=== PATIENT | male | born 1995 | race Hispanic/Latino ===

== ENCOUNTER 2018-07-05 18:37 | Emergency (ER) | payer BC ==
[2018-07-05 19:02] VITALS: RESP 18; TEMP 97.9
--- NOTE | 2018-07-05 19:11 | ED PDOC ---
Arrival/HPI - General Historian: Patient - History of Present Illness Narrative History of Present Illness (Text): 07/05/18 19:07 23 y/o male, no significant pmh, nkda, c/o lt. lower rib pain and bruisin on the left flank x 5 days. Pt. stated that he was down at the [facility], came out of the shower, slipped and landed on the left flank region with pain, noted bruising 1-2 days later which causing the lt. lower sided abdomen bruising, no hematuria, no shortness of breath/palpitation, no night sweat, last tetanus over 10 years ago, no nausea/vomiting/diarrhea, no other medical or psychological complaints. <Marty Mancia - Last Filed: 07/05/18 22:19> <Tonio Scanlon - Last Filed: 07/06/18 02:31> - General Chief Complaint: Rib Injury Time Seen by Provider: 07/05/18 18:50 Past Medical History - Provider Review Nursing Documentation Reviewed: Yes - Cardiac Hx Pacemaker: No - Neurological Hx Paralysis: No - Hematological/Oncological Hx Blood Transfusions: No Hx Blood Transfusion Reaction: No - Musculoskeletal/Rheumatological Hx Musculoskeletal Disorders: No - Psychiatric Hx Emotional Abuse: No Hx Physical Abuse: No Hx Substance Use: No - Anesthesia Hx Anesthesia: Yes Hx Anesthesia Reactions: No Hx Malignant Hyperthermia: No - Suicidal Assessment Feels Threatened In Home Enviroment: No <Marty Mancia - Last Filed: 07/05/18 22:19> Family/Social History - Physician Review Nursing Documentation Reviewed: Yes Family/Social History: Unknown Family HX Smoking Status: Never Smoked Hx Alcohol Use: No Hx Substance Use: No <Marty Mancia - Last Filed: 07/05/18 22:19> Allergies/Home Meds <Marty Mancia - Last Filed: 07/05/18 22:19> <Tonio Scanlon - Last Filed: 07/06/18 02:31> Allergies/Adverse Reactions: Allergies No Known Allergies Allergy (Verified 10/03/12 09:45) Home Medications: Home Meds Medication Instructions Recorded Confirmed Dextroamphetamine/Amphetamine 1 cap PO DAILY 07/05/18 07/05/18 [Adderall Xr 30 mg Capsule] Review of Systems - Review of Systems Constitutional: absent: Fatigue, Fevers Eyes: absent: Vision Changes ENT: absent: Hearing Changes Respiratory: absent: SOB, Cough, Sputum, Wheezing Cardiovascular: absent: Chest Pain Gastrointestinal: absent: Abdominal Pain, Vomiting Musculoskeletal: Arthralgias, Myalgias Skin: Other (+bruising and abrasion). absent: Rash, Pruritis, Skin Lesions, Laceration, Abscess, Ulcer, Cellulitis Neurological: absent: Headache, Dizziness Psychiatric: absent: Anxiety, Depression, Suicidal Ideation <Marty Mancia Q - Last Filed: 07/05/18 22:19> Physical Exam Vital Signs Reviewed: Yes Vital Signs Temp Pulse Resp BP Pulse Ox 07/05/18 18:38 97.9 F 79 18 144/91 H 97 Temperature: Afebrile Blood Pressure: Hypertensive Pulse: Regular Respiratory Rate: Normal Appearance: Positive for: Well-Appearing, Non-Toxic, Comfortable Pain Distress: Moderate Mental Status: Positive for: Alert and Oriented X 3 - Systems Exam Head: Present: Atraumatic, Normocephalic Pupils: Present: PERRL Extroacular Muscles: Present: EOMI Conjunctiva: Present: Normal Mouth: Present: Moist Mucous Membranes Neck: Present: Normal Range of Motion Respiratory/Chest: Present: Clear to Auscultation, Good Air Exchange, Tender to Palpation (+lt. lower rib cage region). No: Respiratory Distress, Accessory Mus jasbir Use, Wheezes, Decreased Breath Sounds, Rales, Retracting, Rhonchi, Tachypneic Cardiovascular: Present: Regular Rate and Rhythm, Normal S1, S2. No: Murmurs Abdomen: Present: Tenderness (+ttp on the LUQ/flank region with bruising approx. [id number] bruising L-shaped with superficial healing abrasion noted. ). No: Distention, Peritoneal Signs, Rebound, Guarding Back: Present: Normal Inspection. No: Midline Tenderness, Paraspinal Tenderness, Pain with Leg Raise, Decubitus Ulcer Upper Extremity: Present: Normal Inspection. No: Cyanosis, Edema Lower Extremity: Present: Normal Inspection. No: Edema Neurological: Present: GCS=15, CN II-XII Intact, Speech Normal Skin: Present: Warm, Dry, Normal Color. No: Rashes Psychiatric: Present: Alert, Oriented x 3, Normal Insight, Normal Concentration <Marty Mancia Q - Last Filed: 07/05/18 22:19> Vital Signs Temp Pulse Resp BP Pulse Ox 07/05/18 22:50 74 18 132/74 100 07/05/18 18:38 97.9 F 79 18 144/91 H 97 <Tonio Scanlon - Last Filed: 07/06/18 02:31> Medical Decision Making ED Course and Treatment: 07/05/18 19:18 -Labs -CT -IVF/morphine -observe and reassess 07/05/18 22:20 -CT Chest/abdomen/pelvis: No acute traumatic injury appreciated. The thoracic ribs appear unremarkable. No acute intrapulmonary disease. Enteritis. No evidence of bowel obstruction. -Labs are non-significant -Pt. feels well, no pain, no GI symptoms, CT enteritis result is not correlated clinically with no elevation of wbc, likely overread. -All labs and radiology result discussed with the patient. -Discharge home with naproxen, flexeril, bed rest, follow up with your own pmd and orthopedic within 2 days, return to the ER for any new or worsening signs or symptoms. - RAD Interpretation Radiology Orders: -CT Chest/abdomen and pelvis Findings: Chest: The pulmonary arteries are well-opacified with contrast, with no intraluminal filling defects to suggest embolism. The thoracic aorta is unremarkable. There is no pericardial or pleural effusion. The lungs are clear. There is no thoracic lymphadenopathy. The thyroid gland is within normal limits. Abdomen: The liver, spleen, pancreas, kidneys, gallbladder, and adrenal glands are unremarkable. The aorta is within normal limits. There is no evidence of abdominal lymphadenopathy or ascites. There is small bowel wall thickening with moderate fluid distention. Pelvis: The colon is unremarkable, with no obstructive or inflammatory changes. The appendix is normal. The urinary bladder is within normal limits. The other pelvic structures appear grossly intact. There is no evidence of pelvic lymphadenopathy or ascites. Bones: There are no suspicious osseous abnormalities seen. Impression: 1. No acute traumatic injury appreciated. The thoracic ribs appear unremarkable. 2. No acute intrapulmonary disease. 3. Enteritis. No evidence of bowel obstruction. Electronically signed on Jul 05, 2018 10:15:57 PM EST by: Luis Enrique Rivas M.D., MELISSA Certified By [facility] Fellowship Trained MRI and CT Specialist Appliance Technician: Radiologist <Marty Mancia - Last Filed: 07/05/18 22:19> - Lab Interpretations Lab Results: 07/05/18 19:50 07/05/18 19:50 Lab Results 07/05/18 19:50: PT 10.5, INR 0.92, APTT 30.1 07/05/18 19:50: WBC 7.2, RBC 5.62, Hgb 17.1, Hct 47.9, MCV 85.2, MCH 30.4, MCHC 35.7, RDW 12.9, Plt Count 260, MPV 10.6, Gran % 55.3, Lymph % (Auto) 32.9, Henry % (Auto) 6.7 H, Eos % (Auto) 4.8, Baso % (Auto) 0.3, Gran # 3.96, Lymph # (Auto) 2.4, Henry # (Auto) 0.5, Eos # (Auto) 0.3, Baso # (Auto) 0.02 07/05/18 19:50: Sodium 137, Potassium 4.0, Chloride 101, Carbon Dioxide 26, Anion Gap 15, BUN 13, Creatinine 1.0, Est GFR ( Amer) > 60, Est GFR (Non- Af Amer) > 60, Random Glucose 107, Calcium 9.4, Total Bilirubin 0.4, AST 41, ALT 35, Alkaline Phosphatase 62, Total Protein 7.9, Albumin 4.6, Globulin 3.2, Albumin/Globulin Ratio 1.4 - RAD Interpretation Radiology Orders: 07/05/18 19:11 CHEST,ABD,PEL W/IV CONT ONLY [CT] Stat - Medication Orders Current Medication Orders: Discontinued Medications Sodium Chloride (Sodium Chloride 0.9%) 1,000 mls @ 250 mls/hr IV .Q4H [facility] Last Admin: 07/05/18 20:08 Dose: 250 mls/hr eMAR Start Stop Document 07/05/18 20:08 KV (Rec: 07/05/18 20:08 KV [id number]) Intravenous Solution Start Date 07/05/18 Start Time 20:08 Morphine Sulfate (Morphine) 4 mg IVP STAT STA Stop: 07/05/18 19:16 Last Admin: 07/05/18 20:07 Dose: 4 mg MAR Pain Assessment Document 07/05/18 20:07 KV (Rec: 07/05/18 20:07 KV [id number]) Pain Reassessment Is this a pain reassessment? No Sleep Is patient sleeping during reassessment? No Presence of Pain Presence of Pain Yes Pain Scale Used Protocol: PSCALES Pain Scale Used Numeric Description Intensity of Pain at present 8 IVP Administration Document 07/05/18 20:07 KV (Rec: 07/05/18 20:07 KV [id number]) Charges for Administration # of IVP Administrations 1 Tetanus/Reduced Diphtheria/Acell Pertussis (Boostrix Vaccine Inj) 0.5 ml IM .ONCE ONE Stop: 07/05/18 19:14 Last Admin: 07/05/18 20:08 Dose: 0.5 ml Immunization Registry Document 07/05/18 20:08 KV (Rec: 07/05/18 20:08 KV [id number]) [facility]-Date provided 07/05/18 <Tonio Scanlon - Last Filed: 07/06/18 02:31> - PA / DISTRICT ADMINISTRATIVE ASSISTANT / Resident Statement RONEL has reviewed & agrees with the documentation as recorded. <Marty Mancia - Last Filed: 07/05/18 22:19> - PA / DISTRICT ADMINISTRATIVE ASSISTANT / Resident Statement RONEL has reviewed & agrees with the documentation as recorded. <Tonio Scanlon - Last Filed: 07/06/18 02:31> Disposition/Present on Arrival - Present on Arrival Any Indicators Present on Arrival: No History of DVT/PE: No History of Uncontrolled Diabetes: No Urinary Catheter: No History of Decub. Ulcer: No History Surgical Site Infection Following: None - Disposition Have Diagnosis and Disposition been Completed?: Yes Disposition Time: 22:22 Patient Plan: Discharge <Marty Mancia - Last Filed: 07/05/18 22:19> <Tonio Scanlon - Last Filed: 07/06/18 02:31> - Disposition Diagnosis: Contusion, Fall, Abrasion Disposition: HOME/ ROUTINE Condition: IMPROVED Additional Instructions: -Discharge home with naproxen, flexeril, bed rest, use neosporin as needed, follow up with your own pmd and orthopedic within 2 days, return to the ER for any new or worsening signs or symptoms. Prescriptions: Cyclobenzaprine [Cyclobenzaprine HCl] 10 mg PO TID PRN #21 tab PRN Reason: Other Naproxen 500 mg PO BID PRN #20 tablet PRN Reason: other Referrals: FAMILY PROVIDER,NO [Primary Care Provider] - Follow up with primary Yeyo Hill III, MD [Medical Doctor] - Follow up with primary Forms: [place] ([place]ian), WORK NOTE
[2018-07-05] MEDS ORDERED: TDAP Vaccine 0.5 mL Syr IM ONE (19:13)
[2018-07-05] MEDS ORDERED: Morphine 4 mg/ml ISec IVP STA (19:15)
[2018-07-05] MEDS ORDERED: Sodium Chloride 0.9% 1,000 ML IV SCH (19:30)
[2018-07-05 20:02] LABS: BASO # 0.02 K/mm3 (0.0-2.0); BASO % 0.3 % (0.0-3.0); EOS # 0.3 (0.0-0.7); EOS % 4.8 % (1.5-5.0); GRAN # 3.96 (1.4-6.5); GRAN % 55.3 % (50.0-68.0); HEMOGLOBIN 17.1 g/dL (14.0-18.0); LYMPH # 2.4 (1.2-3.4); LYMPH % 32.9 % (22.0-35.0); MEAN CELL VOLUME 85.2 fl (80.0-105.0); MEAN CORPUSCULAR HEMOGLOBIN 30.4 pg (25.0-35.0); MEAN CORPUSCULAR HGB CONC 35.7 g/dl (31.0-37.0); MEAN PLATELET VOLUME 10.6 fl (7.0-11.0); MONO # 0.5 (0.1-0.6); MONO % 6.7 % (1.0-6.0); RBC 5.62 10^6/uL (3.5-6.1); RED CELL DISTRIBUTION WIDTH 12.9 % (11.5-14.5); WHITE BLOOD COUNT 7.2 10^3/uL (4.5-11.0)
[2018-07-05 20:11] LABS: INR 0.92; PARTIAL THROMBOPLASTIN TIME 30.1 Seconds (25.1-36.5); PROTHROMBIN TIME 10.5 SECONDS (9.4-12.5)
[2018-07-05 20:13] LABS: ALB/GLOB RATIO 1.4 (1.1-1.8); ALBUMIN 4.6 g/dL (3.0-4.8); ALT/SGPT 35 U/L (7-56); AST/SGOT 41 U/L (17-59); BLOOD UREA NITROGEN 13 mg/dL (7-21); CALCIUM 9.4 mg/dL (8.4-10.5); GFR NON-AFRICAN AMERICAN > 60
[2018-07-05] MEDS ORDERED: Iohexol 350 MG/100 ML VIAL ONE (20:25)
[2018-07-05 23:26] VITALS: BP 132/74; PULSE 74; O2SAT 100
--- NOTE | 2018-07-06 11:47 | CT ---
Date of service: 07/05/2018 PROCEDURE: CT Chest, Abdomen and Pelvis with intravenous contrast HISTORY: lt. lower rib injury s/p fall 06/30/2018, bruising COMPARISON: None available. TECHNIQUE: IV dose administered: 100 cc of Omni 350 Radiation dose: Total exam DLP = 1192.22 mGy-cm. This CT exam was performed using one or more of the following dose reduction techniques: Automated exposure control, adjustment of the mA and/or kV according to patient size, and/or use of iterative reconstruction technique. FINDINGS: CT CHEST WITH CONTRAST: LUNGS: Clear. No nodule, mass or consolidation. MEDIASTINUM: Unremarkable. Normal caliber aorta and pulmonary arterial trunk. No aortic dissection. Normal size heart. LYMPH NODES: Unremarkable. PLEURA: Unremarkable. No pneumothorax. No pleural fluid. BONES: Unremarkable. OTHER FINDINGS: None. CT ABDOMEN AND PELVIS: LIVER: Unremarkable. No gross lesion or ductal dilatation. GALLBLADDER AND BILE DUCTS: Unremarkable. PANCREAS: Unremarkable. No gross lesion or ductal dilatation. SPLEEN: Unremarkable. ADRENALS: Unremarkable. No mass. KIDNEYS AND URETERS: Unremarkable. No hydronephrosis. No solid mass. VASCULATURE: No aortic atherosclerotic calcification or mural plaque present. Unremarkable. No aortic aneurysm. BOWEL: Unremarkable. No obstruction. No gross mural thickening. APPENDIX: Normal appendix. PERITONEUM: Unremarkable. No free fluid. No free air. LYMPH NODES: Unremarkable. No enlarged lymph nodes. BLADDER: Unremarkable. REPRODUCTIVE: Unremarkable. BONES: No acute fracture. OTHER FINDINGS: The report concurs with the preliminary [facility] report IMPRESSION: No evidence of fracture. No acute intrathoracic or intra-abdominal findings.
== END 2018-07-05 22:50 | disposition home or self-care (01) ==
LOC: ED 18:37
DX: S30.1XXA Contusion of abdominal wall, initial encounter (principal); W01.0XXA Fall on same level from slipping, tripping and stumbling without subsequent striking against object, initial encounter; Y92.89 Other specified places as the place of occurrence of the external cause
CPT/HCPCS: 71260; 74177; 80053; 85025; 85610; 85730; 90471; 90715; 96374; 99283; J2270; J7030; Q9967